=== PATIENT | male | born 1945 | race Caucasian/White ===

== ENCOUNTER 2020-08-10 16:06 | Emergency (ER) | payer MEDICARE ==
[2020-08-10 17:13] LABS: HEMOGLOBIN 14.8 gm/dl (14.0-17.5); RED BLOOD COUNT 4.79 M/UL (4.20-5.50); WHITE BLOOD COUNT 8.3 K/UL (4.5-11.0)
[2020-08-10 17:46] LABS: BUN/CREATININE RATIO 15 (0-10)
[2020-08-10] MEDS ORDERED: AUGMENTIN 875-1 EACH PO (20:12)
[2020-08-10] MEDS ORDERED: ZOFRAN ODT 4 MG4 MG SL (20:12)
[2020-08-10] MEDS ORDERED: PERCOCET 5-3251 EACH PO (20:12)
== END 2020-08-10 21:10 | disposition home or self-care (01) ==
LOC: ER1 16:06 → EDBD 16:06 → ER1 21:10
PROVIDERS: Emergency Medicine
DX: K80.50 Calculus of bile duct without cholangitis or cholecystitis without obstruction (principal); K21.9 Gastro-esophageal reflux disease without esophagitis; Z20.822 Contact with and (suspected) exposure to COVID-19
CPT/HCPCS: 0240U; 71045; 71250; 80053; 82550; 82553; 83690; 83735; 83874; 83880; 84100; 84484; 85025; 85610; 85730; 93005; 99284; Q9967

== ENCOUNTER → 2020-08-17 | Day surgery (SDC) | payer MEDICARE ==
[~2020-08-17] MED LIST: AUGMENTIN 875-1 EACH PO; PERCOCET 5-3251 EACH PO; ZOFRAN ODT 4 MG4 MG SL
== END | disposition home or self-care (01) ==
LOC: OR 07:30
DX: K81.2 Acute cholecystitis with chronic cholecystitis (principal); K21.9 Gastro-esophageal reflux disease without esophagitis
CPT/HCPCS: J0690; J1100; J2001; J2405; J2704; J2710; J3010; J7030; J7120